=== PATIENT | female | born 1990 | race American Indian/Alaskan Native ===

== ENCOUNTER 2017-06-14 14:44 | Outpatient (CLI) | payer OTHER | END 2017-06-14 15:55 | disposition home or self-care (01) | LOC: DCC 14:44 | DX: N12 Tubulo-interstitial nephritis, not specified as acute or chronic (principal); N21.0 Calculus in bladder; N13.2 Hydronephrosis with renal and ureteral calculous obstruction | CPT/HCPCS: G0463 ==

== ENCOUNTER 2017-07-05 14:44 | Outpatient (CLI) | payer OTHER | END 2017-07-05 16:42 | disposition home or self-care (01) | LOC: DCC 14:44 | DX: N12 Tubulo-interstitial nephritis, not specified as acute or chronic (principal); N21.0 Calculus in bladder; N13.2 Hydronephrosis with renal and ureteral calculous obstruction | CPT/HCPCS: G0463 ==

== ENCOUNTER 2017-09-14 08:27 | Day surgery (SDC) | payer OTHER ==
[2017-09-14] MEDS: CEFTRIAXONE 1 GM/NS 50 ML IVPB (07:00)
[2017-09-14] MEDS ORDERED: EPHEDrine SULFATE 50 MG/5 ML SYG IV (10:30)
[2017-09-14] MEDS ORDERED: LABETALOL HCL 20MG INJ IV (10:30)
[2017-09-14] MEDS ORDERED: OXYCODONE/ACETAMINOPHEN (5/325) TAB PO ×2 (10:30)
[2017-09-14] MEDS ORDERED: FENTAnyl 50 MCG/ML VIAL IV (10:30)
[2017-09-14] MEDS ORDERED: hydrALAzine 20 MG INJ IV (10:30)
[2017-09-14] MEDS ORDERED: METOCLOPRAMIDE 10 MG INJ IV (10:30)
[2017-09-14] MEDS ORDERED: HYDROmorphONE 1 MG/5 ML IV SYRINGE IV ×2 (10:30)
[2017-09-14] MEDS ORDERED: MIDAZOLAM 1 MG/ML 2 ML INJ IV (10:30)
[2017-09-14] MEDS ORDERED: PROPOFOL 20 ML (10:42)
[2017-09-14] MEDS ORDERED: GLYCOPYRROLATE 0.4 MG INJ ×2 (10:42→12:51)
[2017-09-14] MEDS ORDERED: NEOSTIGMINE 3 MG/3 ML SYRINGE ×2 (10:42→12:51)
[2017-09-14] MEDS ORDERED: ROCURONIUM 50 MG INJ (10:42)
[2017-09-14] MEDS ORDERED: SUCCINYLCHOLINE CHLORIDE 100 MG/5 ML SYG IV (10:42)
[2017-09-14] MEDS ORDERED: LIDOCAINE 2% (SDV) 5 ML INJ (10:42)
[2017-09-14] MEDS ORDERED: METOCLOPRAMIDE 10 MG INJ (10:54)
[2017-09-14] MEDS ORDERED: ONDANSETRON 4 MG INJ (10:54)
[2017-09-14] MEDS ORDERED: MEPERIDINE 100 MG INJ (12:12)
[2017-09-14] MEDS ORDERED: HYDROCODONE/APAP (5/325) TAB PO (13:30)
[2017-09-14] MEDS: MEPERIDINE 25 MG INJ IV (13:36)
[2017-09-14] MEDS: ONDANSETRON 4 MG INJ IV (13:36)
[2017-09-14] MEDS: FENTAnyl 50 MCG/ML VIAL IV ×2 (13:36→14:09)
[2017-09-14] MEDS: DIPHENHYDRAMINE 50 MG INJ IV (13:52)
[2017-09-14] MEDS: HYDROmorphONE 1 MG/5 ML IV SYRINGE IV (15:32)
== END 2017-09-14 16:40 | disposition home or self-care (01) ==
LOC: SDS 08:27
DX: N21.0 Calculus in bladder (principal)
CPT/HCPCS: 52318; 74018; 74430; 84703; 87086; 88300